=== PATIENT | female | born 1935 | race Caucasian/White ===

== ENCOUNTER 2018-06-21 09:51 | Inpatient (IN) | payer MEDICARE, OTHER ==
[~2018-06-21] VITALS: Ht 162.6 cm; Wt 45.0 kg
[2018-06-21] VITALS (31 sets, daily range): BP systolic 53–132; BP diastolic 30–96; PULSE 61–101; RESP 12–25; Ht 162.6 cm; Wt 45.0 kg
[~2018-06-21 09:51] MED LIST: ETOMIDATE 20 MG INJ ONE; ROCURONIUM 50 MG INJ ONE
[2018-06-21] MEDS ORDERED: PROPOFOL 100 ML ONE (10:04)
[2018-06-21] MEDS ORDERED: SOD CHLORIDE 0.9% IV ONE (10:30)
[2018-06-21] MEDS: PROPOFOL 100 ML IV STA ×3 (10:30→14:59)
[2018-06-21] MEDS ORDERED: NORepinephrine 8MG/250 ML (PMX 250 ML IV STA (11:15)
[2018-06-21] MEDS ORDERED: CEFEPIME 2GM/50 ML (PMX) 50 ML IVPB STA (11:16)
[2018-06-21] MEDS ORDERED: NORepinephrine 8MG/250 ML (PMX 250 ML ONE (11:22)
[2018-06-21] MEDS ORDERED: POTASSIUM CHLORIDE 100 ML IVPB ONE (11:30)
[2018-06-21] MEDS ORDERED: VANCOMYCIN 1 GM (PMX) 250 ML IVPB ONE (11:30)
--- NOTE | 2018-06-21 11:45 | ERD ---
ER Documentation Chief Complaint Chief Complaint BIB RA FOR RESPIRATORY DISRESS. SON WITH PT AT BEDSIDE HPI This is an 83-year-old female who presents for evaluation of respiratory distress, she is brought in by her son. Per the son, the patient has a history of hypothyroidism, and had been overall in her general normal state of health up until about a week ago, since then she has experienced rapid decline. Today, she was generally unresponsive, and was brought in by EMS apneic. Upon my evaluation, I discussed the plan of care with the patient's son, and he did wish to have her intubated for airway protection, however felt that her wishes would be to not perform CPR should she have a cardiac arrest. ROS All systems reviewed and are negative except as per history of present illness. Medications Home Meds Reported Medications Levothyroxine Sodium* (Levothyroxine Sodium*) 75 Mcg Tablet, 75 MCG PO BEFORE BREAKFAST, #30 TAB 06/21/18 Allergies Allergies: Coded Allergies: No Known Allergy (Unverified , 06/21/18) Physical Exam Vitals Vital Signs Date Temp Pulse Resp B/P (MAP) Pulse Ox O2 O2 Flow FiO2 Time Delivery Rate 06/21/18 78 80/57 (65) 100 Mechanical 14:20 Ventilator 06/21/18 81 21 100 50 13:52 06/21/18 77 118/81 100 Mechanical 13:45 (93) Ventilator 06/21/18 88 20 117/88 100 Mechanical 12:30 (98) Ventilator 06/21/18 85 18 91/73 (79) 100 Mechanical 12:15 Ventilator 06/21/18 81 18 97/74 (82) 100 Mechanical 12:00 Ventilator 06/21/18 81 18 100 50 11:53 06/21/18 88 20 129/63 100 Mechanical 11:45 (85) Ventilator 06/21/18 120 20 123/72 100 Mechanical 11:35 (89) Ventilator 06/21/18 108 20 98/47 (64) 100 Mechanical 11:30 Ventilator 06/21/18 114 18 58/35 (43) 100 Mechanical 11:25 Ventilator 06/21/18 80 18 57/37 (44) 100 Mechanical 11:15 Ventilator 06/21/18 89 20 57/37 (44) 100 Mechanical 11:00 Ventilator 06/21/18 Rebreather 15 10:50 06/21/18 71 18 95/59 (71) 100 Mechanical 10:45 Ventilator 06/21/18 74 18 130/57 100 Mechanical 10:30 (81) Ventilator 06/21/18 98.1 84 18 105/63 100 Mechanical 10:15 (77) Ventilator 06/21/18 92 18 99 100 10:14 06/21/18 89 26 134/82 100 Mechanical 10:00 (99) Ventilator 06/21/18 90 8 126/83 09:57 (97) Physical Exam Const: Obtunded Head: Atraumatic Eyes: Normal Conjunctiva ENT: Normal External Ears, Nose and Mouth. Neck: Full range of motion. No meningismus. Resp: Shallow breath sounds Cardio: Regular rate and rhythm, no murmurs Abd: Soft, non tender, non distended. Normal bowel sounds Skin: No petechiae or rashes Back: No midline or flank tenderness Ext: No cyanosis, or edema Neur: Opens eyes to painful stimulus, is otherwise unresponsive Result Diagram: 06/21/18 1020 06/21/18 1020 Results 24 hrs Laboratory Tests Test 06/21/18 10:20 06/21/18 10:21 06/21/18 10:43 06/21/18 10:45 White Blood 8.6 10^3/ul Count Red Blood Count 3.77 10^6/ul Hemoglobin 11.3 g/dl Hematocrit 34.9 % Mean Corpuscular 92.6 fl Volume Mean Corpuscular 30.0 pg Hemoglobin Mean Corpuscular 32.4 g/dl Hemoglobin Zena nt Red Cell 15.2 % Distribution Width Platelet Count 199 10^3/UL Mean Platelet 9.6 fl Volume Immature 0.900 % Granulocytes % Neutrophils % 86.1 % Lymphocytes % 8.9 % Monocytes % 4.1 % Eosinophils % 0.0 % Basophils % 0.0 % Nucleated Red 0.0 /100WBC Blood Cells % Immature 0.080 10^3/ul Granulocytes # Neutrophils # 7.4 10^3/ul Lymphocytes # 0.8 10^3/ul Monocytes # 0.4 10^3/ul Eosinophils # 0.0 10^3/ul Basophils # 0.0 10^3/ul Nucleated Red 0.0 10^3/ul Blood Cells # Prothrombin Time 17.1 Sec Prothrombin Time 1.3 Ratio INR 1.38 International Normalized Ratio Sodium Level 147 mmol/L Potassium Level 2.7 mmol/L Chloride Level 121 mmol/L Carbon Dioxide 16 mmol/L Level Anion Gap 10 Blood Urea 43 mg/dl Nitrogen Creatinine 1.46 mg/dl Est Glomerular mL/min Filtrat Rate mL/min Glucose Level 126 mg/dl Calcium Level 6.6 mg/dl Total Bilirubin 0.2 mg/dl Direct Bilirubin 0.00 mg/dl Indirect 0.2 mg/dl Bilirubin Aspartate Amino 27 IU/L Transf (AST/SGOT ) Alanine 21 IU/L Aminotransferase (ALT/SGPT) Alkaline 53 IU/L Phosphatase Troponin I 0.546 ng/ml Total Protein 4.5 g/dl Albumin 2.0 g/dl Globulin 2.50 g/dl Albumin/Globulin 0.80 Ratio Free Thyroxine 4.02 ug/ml Index Thyroxine (T4) 7.1 ug/dl Triiodothyronine 56.6 % (T3) Uptake Salicylates < 1.0 mg/dl Level Acetaminophen < 10.0 ug/ml Level Ethyl Alcohol < 10.0 mg/dl Level Ammonia < 9 umol/l Urine Color SHIRA Urine Clarity CLEAR Urine pH 5.0 Urine Specific 1.019 [place] Urine Ketones NEGATIVE mg/dL Urine Nitrite NEGATIVE mg/dL Urine Bilirubin NEGATIVE mg/dL Urine 2+ mg/dL Urobilinogen Urine Leukocyte NEGATIVE Mickey/ul Esterase Urine 11 /HPF Microscopic RBC Urine 2 /HPF Microscopic WBC Urine Squamous FEW /HPF Epithelial Cells Urine Bacteria FEW /HPF Urine Hemoglobin 2+ mg/dL Urine Glucose NEGATIVE mg/dL Urine Total 1+ mg/dl Protein Urine Opiates Negative Screen Urine Negative Barbiturates Urine Negative Amphetamines Screen Urine Negative Benzodiazepines Screen Urine Cocaine Negative Screen Urine Negative Cannabinoids Blood Gas Blood arterial Specimen Source Arterial Blood 06/21/2018 11:15: Date Drawn 46 AM Arterial Blood 7.453 pH (Temp corrected) Arterial Blood 19.8 mmhg pCO2 (Temp correct) Arterial Blood 489.9 mmHG pO2 (Temp corrected) Arterial Blood 13.5 mmol/L HCO3 Arterial Blood -8.0 mmol/L Base Excess Arterial Blood 99.6 mmHG Oxygen Saturatio n Russel Test ACCEPTAB Arterial Blood Left Radial Gas Puncture Site Arterial 0.1 % Blood Carboxyhem oglobin Arterial Blood 0.4 % Methemoglobin Blood Gas A-a O2 203.3 mmHg Differential Oxyhemoglobin 99.1 % Percent Blood Gas 37.0 C Temperature Blood Gas 18.0 Respiration Rate Blood Gas Actual 18 Respiration Rate Blood Gas VENT - AC Modality FiO2 100.0 % Blood Gas Tidal 400.0 mL Volume Blood Gas TM Notified Whom Blood Gas 06/21/2018 11:23: Notified Time 35 AM Test 06/21/18 11:13 06/21/18 14:36 POC Venous 4.1 mmol/L 2.5 mmol/L Lactate Current Medications Medications Dose Sig/Baljit Start Time Status Last (Trade) Ordered Route PRN Stop Time Admin Dose Reason Admin Sodium 1,350 ml @ BOLUS X1 06/21/18 DC 06/21/18 Chloride 675 mls/hr ONCE IV 10:30 06/21/18 10:46 12:29 Potassium 100 ml @ ONCE ONCE 06/21/18 DC 06/21/18 Chloride 50 mls/hr IVPB 11:30 06/21/18 12:56 13:29 Calcium 110 ml @ ONCE IVPB 06/21/18 DC 06/21/18 Gluconate 1 110 mls/hr 12:30 06/21/18 12:56 gm/Dextrose 13:29 250 ml @ ONCE STAT 06/21/18 06/21/18 Norepinephrin 7.5 mls/hr IV 11:15 06/22/18 11:25 e 20:34 Cefepime HCl 50 ml @ ONCE STAT 06/21/18 DC 06/21/18 100 mls/hr IVPB 11:16 06/21/18 12:50 11:45 Vancomycin 250 ml @ ONCE ONCE 06/21/18 DC 06/21/18 HCl 125 mls/hr IVPB 11:30 06/21/18 14:56 13:29 250 ml @ ud STK-MED 06/21/18 DC Norepinephrin ONCE .ROUTE 11:22 06/21/18 e 11:23 Propofol 100 ml @ ONCE STAT 06/21/18 06/21/18 1.35 mls/hr IV 14:31 06/24/18 10:30 16:35 75 mcg BEFORE 06/22/18 Levothyroxine BREAKFAST 07:00 Sodium PO (Synthroid) Enoxaparin 45 mg Q12 SC 06/21/18 DC Sodium 15:00 06/21/18 (Lovenox) 15:06 Sodium 1,000 ml @ [id number] IV 06/21/18 Chloride 80 mls/hr 15:00 40 mg DAILY@06 06/22/18 Pantoprazole IV 06:00 (Protonix Iv) Docusate 100 mg BID PO 06/21/18 Sodium 21:00 (Colace) 650 mg Q6H PRN 06/21/18 Acetaminophen NGT MILD 15:00 (Tylenol PAIN(1-3)OR Liquid) ELEVATED TEMP Enoxaparin 45 mg DAILY SC 06/21/18 Sodium 15:30 (Lovenox) Procedures/MDM Is an 83-year-old female who presents with respiratory distress, and altered mental state. As noted above, after discussion with the patient's son, she was intubated for airway protection, subsequently she was noted to be hypotensive, and central line was placed, she was given 30 cc/kg bolus of fluids, and she was started on IV pressors. She had no fever, but given her 100% shock, she was covered with broad-spectrum antibiotics for occult infection, she had a positive troponin as well, so other consideration that she may have had an ID, that could possibly of an silent last week. At this time I do not feel the patient has sepsis, as she has no source. Patient will be admitted to the ICU for treatment of shock. Critical Care Time: 35 minutes Treatments/Evaluations: Close monitoring and treatment of unstable vital signs, cardiorespiratory, and neurologic status, while maintaining tight balance of fluid, respiratory, and cardiac interventions. This time includes discussing the case with the patient and the patient's family. This time does not include all procedures stated elsewhere in this record. This time also includes reviewing old records, labs and radiological studies. This time includes examining and re- examining the patient. Additionally, this time also includes arranging care with admitting and consulting physicians. Endotracheal Intubation by me: Pre assessment performed. Pre-oxygenation performed with 100% oxygen RSI: Performed w/o complication or hypoxic events. Medications as ordered. Blade: MAC 3 ET Tube: 10.5 cm Depth: 21 cm at the lip Intubation confirmed by colorimetric CO2, equal breath sounds, quiet over the stomach. Chest X-ray 1V Interpreted by me: 2 cm above the waqar ET tube. Normal soft tissue, No pneumothorax. EKG: Rate/Rhythm: Sinus tachycardia QRS, ST, T-waves: No changes consistent w/ acute ischemia Impression: No evidence of ischemia or arrhythmia Departure Diagnosis: Primary Impression: Respiratory distress Additional Impressions: NSTEMI (non-ST elevated myocardial infarction) Shock Altered mental state Altered mental status type: unspecified Qualified Codes: R41.82 - Altered mental status, unspecified Condition: Critical TAI DUNCAN MD Jun 21, 2018 11:45
[2018-06-21] MEDS ORDERED: LEVO75TA5 PO (12:07)
--- NOTE | 2018-06-21 12:27 | HP ---
Date/Time of Note Date/Time of Note DATE: 06/21/18 TIME: 11:55 Assessment/Plan VTE Prophylaxis Pharmacological prophylaxis: LMWH Lines/Catheters IV Catheter Type (from Nrs): Saline Lock Assessment/Plan Assessment/Plan 83-year-old female who was brought in by family for respiratory distress and shortness of breath, has meghan declining for a while #Acute encephalopathy -may be 2/2 sepsis vs other organic cause -CT brain shows no acute pathology -may need MRI if mental status doesn't improve #Acute resp failure - likely 2/2 encephalopathy / r/o aspiration / intubated on vent support / pulm consult #Sepsis with lactic acidosis and septic shock, less likely cardiogenic -continue pressor support, wean as tolerated -?source, UA and CXR not overtly impressive -begin empiric abx, trend lactic acid levels -influenza screen #NSTEMI : likely type 2, demand ischemia -aspirin, anticoag, echo, cardiology consult -likely not a candidate for any aggressive intervention #Hx of hypothyroidism -check TSH to assess control #JUAN DAVID r/o underlying CKD -likely component of dehydration -hydration, renal USS, nephro consult? #Metabolic acidosis 2/2 JUAN DAVID -fluids, trend #Hypernatremia 2/2 dehydration -trend #Hypocalcemia -replete #DNR but pressors and intubation OK Dispo: critically ill patient requiring close monitoring and micromanagement Prognosis is Guarded alf quality of life poor, consider palliative care consult spoke with son extensively, questions answered Result Diagram: 06/21/18 1020 06/21/18 1020 Results 24hrs Laboratory Tests Test 06/21/18 10:20 06/21/18 10:21 06/21/18 10:43 06/21/18 10:45 White Blood Count 8.6 Red Blood Count 3.77 L Hemoglobin 11.3 L Hematocrit 34.9 L Mean Corpuscular 92.6 Volume Mean Corpuscular 30.0 Hemoglobin Mean Corpuscular 32.4 Hemoglobin Concent Red Cell 15.2 H Distribution Width Platelet Count 199 Mean Platelet 9.6 Volume Immature 0.900 H Granulocytes % Neutrophils % 86.1 H Lymphocytes % 8.9 L Monocytes % 4.1 Eosinophils % 0.0 Basophils % 0.0 Nucleated Red 0.0 Blood Cells % Immature 0.080 H Granulocytes # Neutrophils # 7.4 Lymphocytes # 0.8 Monocytes # 0.4 Eosinophils # 0.0 Basophils # 0.0 Nucleated Red 0.0 Blood Cells # Prothrombin Time 17.1 H Prothrombin Time 1.3 Ratio INR International 1.38 Normalized Ratio Sodium Level 147 H Potassium Level 2.7 *L Chloride Level 121 H Carbon Dioxide 16 L Level Anion Gap 10 Blood Urea 43 H Nitrogen Creatinine 1.46 H Est Glomerular Filtrat Rate mL/min Glucose Level 126 Calcium Level 6.6 L Total Bilirubin 0.2 Direct Bilirubin 0.00 Indirect Bilirubin 0.2 Aspartate Amino 27 Transf (AST/SGOT) Alanine 21 Aminotransferase ( ALT/SGPT) Alkaline 53 Phosphatase Troponin I 0.546 *H Total Protein 4.5 L Albumin 2.0 L Globulin 2.50 Albumin/Globulin 0.80 Ratio Free Thyroxine Pending Index Thyroxine (T4) 7.1 Triiodothyronine Pending (T3) Uptake Salicylates Level < 1.0 L Acetaminophen < 10.0 L Level Ethyl Alcohol < 10.0 H Level Ammonia < 9 L Urine Color SHIRA Urine Clarity CLEAR Urine pH 5.0 Urine Specific 1.019 [place] Urine Ketones NEGATIVE Urine Nitrite NEGATIVE Urine Bilirubin NEGATIVE Urine Urobilinogen 2+ H Urine Leukocyte NEGATIVE Esterase Urine Microscopic 11 H RBC Urine Microscopic 2 WBC Urine Squamous FEW Epithelial Cells Urine Bacteria FEW A Urine Hemoglobin 2+ H Urine Glucose NEGATIVE Urine Total 1+ H Protein Urine Opiates Negative Screen Urine Barbiturates Negative Urine Amphetamines Negative Screen Urine Negative Benzodiazepines Screen Urine Cocaine Negative Screen Urine Cannabinoids Negative Blood Gas Specimen Blood arterial Source Arterial Blood 06/21/2018 11:15:46 Date Drawn AM Arterial Blood pH 7.453 H (Temp corrected) Arterial Blood 19.8 L pCO2 (Temp correct) Arterial Blood pO2 489.9 H (Temp corrected) Arterial Blood 13.5 L HCO3 Arterial Blood -8.0 L Base Excess Arterial Blood 99.6 Oxygen Saturation Russel Test ACCEPTAB Arterial Blood Gas Left Radial Puncture Site Arterial 0.1 Blood Carboxyhemog lobin Arterial Blood 0.4 Methemoglobin Blood Gas A-a O2 203.3 H Differential Oxyhemoglobin 99.1 H Percent Blood Gas 37.0 Temperature Blood Gas 18.0 Respiration Rate Blood Gas Actual 18 Respiration Rate Blood Gas Modality VENT - AC FiO2 100.0 Blood Gas Tidal 400.0 Volume Blood Gas Notified TM Whom Blood Gas Notified 06/21/2018 11:23:35 Time AM Test 06/21/18 11:13 POC Venous Lactate 4.1 *H HPI/ROS Admit Date/Time Admit Date/Time Hx of Present Illness 83-year-old female who was brought in by family for respiratory distress and shortness of breath. Patient resides at home with her son and her health has been slowly declining over the last month. She was previously able to ambulate for short distances with support, but in the last month has been more bedbound. BUt as of the last 2 days she has been having these spacing out episodes where her eyes are open but she's not following commands and her appetitte has been slowly waning. She usually recovers from these episodes but as of today she did not improve and as such her son brought her to the ER where she was found to be altered and hypoxic and subsequently intubated. Her blood pressure also dropped and now she is on pressor support. She is beeing admitted to [facility] for further mgt. ROS 12 point review if systems was done and pertinent findings are as noted. Obtained from son. PMH/Family/Social Past Medical History Hypothyrodism Medications Current Medications Sodium Chloride 1,350 ml @ 675 mls/hr BOLUS X1 ONCE IV Last administered on 06/21/18at 10:46; Admin Dose 675 MLS/HR; Start 06/21/18 at 10:30; Stop 06/21/18 at 12:29 Potassium Chloride 100 ml @ 50 mls/hr ONCE ONCE IVPB ; Start 06/21/18 at 11:30; Stop 06/21/18 at 13:29 Calcium Gluconate 1 gm/Dextrose 110 ml @ 110 mls/hr ONCE IVPB ; Start 06/21/18 at 12:30; Stop 06/21/18 at 13:29 Norepinephrine 250 ml @ 7.5 mls/hr ONCE STAT IV ; Start 06/21/18 at 11:15; Stop 06/22/18 at 20:34 Vancomycin HCl 250 ml @ 125 mls/hr ONCE ONCE IVPB ; Start 06/21/18 at 11:30; Stop 06/21/18 at 13:29 Coded Allergies: No Known Allergy (Unverified , 06/21/18) Exam/Review of Systems Vital Signs Vitals Vital Signs Date Temp Pulse Resp B/P (MAP) Pulse Ox O2 O2 Flow FiO2 Time Delivery Rate 06/21/18 Rebreather 15 10:50 06/21/18 92 18 99 100 10:14 06/21/18 126/83 09:57 (97) Exam Exam GENERAL: Intubated and comfortably sedated HEENT: SHANNON, Intubated, frail, elderly LUNGS: diffusely diminished and coarse BS HEART: S1, S2. No murmur, gallops or rubs. ABDOMEN: Soft, non distended, Normoactive bowel sounds. GENITOURINARY: Normal female external genitalia, Allan to bedside drainage EXTREMITIES: Mild 1+ nonpitting edema bilaterally, also some hand edema bilaterally NEUROLOGIC: The patient is currently sedated. Additional Comments PROCEDURE: Chest x-ray CLINICAL INDICATION: Altered mental status. Intubated. TECHNIQUE: VIEWS: 1 COMPARISON: None. FINDINGS: SUPPORT DEVICES: An endotracheal tube terminates 2.5 cm above the waqar. CARDIAC AND MEDIASTINAL SILHOUETTES: The cardiomediastinal silhouette is not enlarged . There are thoracic aortic atherosclerotic calcifications. LUNGS AND PLEURAL SPACE: The lungs are hyperinflated . There is scarring of the bilateral upper and lower lobes. No consolidation, or pulmonary edema, or pleural effusion. PNEUMOTHORAX: None. OSSEOUS STRUCTURES: There is an indeterminate aged severe compression fracture of the L1 vertebral body. A thoracolumbar rotary levoscoliosis is seen. IMPRESSION: 1. Endotracheal tube tip terminates 2.5 cm above the waqar. 2. Hyperinflated lungs with multifocal scarring. 3. Indeterminate age severe compression fracture of the L1 vertebral body for which further evaluation with dedicated examination of the lumbar spine is recommend. 4. Aortic atherosclerosis. RPTAT: HRSR Physician Renetta Date Time Electronically viewed and signed by Clementine Mg Physician on 06/21/2018 10:47 RR/ CC: TAI DUNCAN MD [id number] RONALD LAWRENCE Jun 21, 2018 12:27
[2018-06-21] MEDS ORDERED: CALCIUM GLUCONATE 10% 1 GM in DEXTROSE 5% 100 ML IVPB SCH (12:30)
--- NOTE | 2018-06-21 14:57 | CONS ---
Date/Time of Note Date/Time of Note DATE: 06/21/18 TIME: 14:56 Assessment/Plan Assessment/Plan Assessment/Plan 1. Acute kidney injury due to ATN from sepsis 2. Hypokalemia 3. Hypernatremia 4. acute hypoxemic respiratory failure 5.H/o Hypothyroidism 6. sepsis 7. acute NSTEMI 8. acute metabolic encephalopathy Plan: admission to ICU Continue IV abx, renally dose all abx an dmontior electrlytes agreesive K replacement ordered for today DNR, but intubation ok Pulmonary and and Cardiology has been following Thanks for consultation, I will continue to follow up Result Diagram: 06/21/18 1020 06/21/18 1020 Results 24hrs Laboratory Tests Test 06/21/18 10:20 06/21/18 10:21 06/21/18 10:43 06/21/18 10:45 White Blood Count 8.6 Red Blood Count 3.77 L Hemoglobin 11.3 L Hematocrit 34.9 L Mean Corpuscular 92.6 Volume Mean Corpuscular 30.0 Hemoglobin Mean Corpuscular 32.4 Hemoglobin Concent Red Cell 15.2 H Distribution Width Platelet Count 199 Mean Platelet 9.6 Volume Immature 0.900 H Granulocytes % Neutrophils % 86.1 H Lymphocytes % 8.9 L Monocytes % 4.1 Eosinophils % 0.0 Basophils % 0.0 Nucleated Red 0.0 Blood Cells % Immature 0.080 H Granulocytes # Neutrophils # 7.4 Lymphocytes # 0.8 Monocytes # 0.4 Eosinophils # 0.0 Basophils # 0.0 Nucleated Red 0.0 Blood Cells # Prothrombin Time 17.1 H Prothrombin Time 1.3 Ratio INR International 1.38 Normalized Ratio Sodium Level 147 H Potassium Level 2.7 *L Chloride Level 121 H Carbon Dioxide 16 L Level Anion Gap 10 Blood Urea 43 H Nitrogen Creatinine 1.46 H Est Glomerular Filtrat Rate mL/min Glucose Level 126 Calcium Level 6.6 L Total Bilirubin 0.2 Direct Bilirubin 0.00 Indirect Bilirubin 0.2 Aspartate Amino 27 Transf (AST/SGOT) Alanine 21 Aminotransferase ( ALT/SGPT) Alkaline 53 Phosphatase Troponin I 0.546 *H Total Protein 4.5 L Albumin 2.0 L Globulin 2.50 Albumin/Globulin 0.80 Ratio Free Thyroxine 4.02 H Index Thyroxine (T4) 7.1 Triiodothyronine 56.6 H (T3) Uptake Salicylates Level < 1.0 L Acetaminophen < 10.0 L Level Ethyl Alcohol < 10.0 H Level Ammonia < 9 L Urine Color SHIRA Urine Clarity CLEAR Urine pH 5.0 Urine Specific 1.019 [place] Urine Ketones NEGATIVE Urine Nitrite NEGATIVE Urine Bilirubin NEGATIVE Urine Urobilinogen 2+ H Urine Leukocyte NEGATIVE Esterase Urine Microscopic 11 H RBC Urine Microscopic 2 WBC Urine Squamous FEW Epithelial Cells Urine Bacteria FEW A Urine Hemoglobin 2+ H Urine Glucose NEGATIVE Urine Total 1+ H Protein Urine Opiates Negative Screen Urine Barbiturates Negative Urine Amphetamines Negative Screen Urine Negative Benzodiazepines Screen Urine Cocaine Negative Screen Urine Cannabinoids Negative Blood Gas Specimen Blood arterial Source Arterial Blood 06/21/2018 11:15:46 Date Drawn AM Arterial Blood pH 7.453 H (Temp corrected) Arterial Blood 19.8 L pCO2 (Temp correct) Arterial Blood pO2 489.9 H (Temp corrected) Arterial Blood 13.5 L HCO3 Arterial Blood -8.0 L Base Excess Arterial Blood 99.6 Oxygen Saturation Russel Test ACCEPTAB Arterial Blood Gas Left Radial Puncture Site Arterial 0.1 Blood Carboxyhemog lobin Arterial Blood 0.4 Methemoglobin Blood Gas A-a O2 203.3 H Differential Oxyhemoglobin 99.1 H Percent Blood Gas 37.0 Temperature Blood Gas 18.0 Respiration Rate Blood Gas Actual 18 Respiration Rate Blood Gas Modality VENT - AC FiO2 100.0 Blood Gas Tidal 400.0 Volume Blood Gas Notified TM Whom Blood Gas Notified 06/21/2018 11:23:35 Time AM Test 06/21/18 11:13 06/21/18 14:36 POC Venous Lactate 4.1 *H 2.5 *H Consultation Date/Type/Reason Admit Date/Time 06/21/18 Date of Consultation: Jun 21, 2018 Type of Consult NEPHROLOGY Reason for Consultation acue kidney injury, Hypokalemia Requesting Provider: RONALD LAWRENCE Hx of Present Illness 83-year-old female who was brought in by family for respiratory distress and shortness of breath. she gets admitted for respiratory failure, intubatd, had a elevated troponin and evaluated by Cardiology, On Admission BUN/Cr 43/1.46, K 2.7- Renal has been consulted for acute kidney injury, Hypookalemia Subjective hx not possible: pt non-verbal, pt critical status Past Medical History Medical History: high cholesterol, hypertension, hypothyroid Medications Current Medications Norepinephrine 250 ml @ 7.5 mls/hr ONCE STAT IV Last administered on 06/21/18at 11:25; Admin Dose 7.5 MLS/HR; Start 06/21/18 at 11:15; Stop 06/22/18 at 20:34 Propofol 100 ml @ 1.35 mls/hr ONCE STAT IV ; Start 06/21/18 at 14:31; Stop 06/24/18 at 16:35 Levothyroxine Sodium (Synthroid) 75 mcg BEFORE BREAKFAST PO ; Start 06/22/18 at 07:00 Enoxaparin Sodium (Lovenox) 45 mg Q12 SC ; Start 06/21/18 at 15:00; Status UNV Allergies: Coded Allergies: No Known Allergy (Unverified , 06/21/18) Past Surgical History Past Surgical Hx: other (not available ) Family History Significant Family History: other (not available ) Social History Alcohol Use: none Drug Use: none Exam/Review of Systems Vital Signs Vitals Vital Signs Date Temp Pulse Resp B/P (MAP) Pulse Ox O2 O2 Flow FiO2 Time Delivery Rate 06/21/18 78 80/57 (65) 100 Mechanical 14:20 Ventilator 06/21/18 21 50 13:52 06/21/18 15 10:50 06/21/18 98.1 10:15 Exam Constitutional: non-verbal, other (due to intubation ) Head: normocephalic Eyes: other (ET tube in place, NG tube in place ) ENMT: nl external ears & nose Neck: supple, non-tender Respiratory: congested cough, crackles/rales, diminished breath sounds Cardiovascular: regular rate and rhythm, nl pulses Gastrointestinal: soft, non-tender Musculoskeletal: muscle weakness, swelling Neurological: other (Intubated, sedated ) Skin: nl turgor Lymph: nl lymph nodes Medications Medications Current Medications Norepinephrine 250 ml @ 7.5 mls/hr ONCE STAT IV Last administered on 06/21/18at 11:25; Admin Dose 7.5 MLS/HR; Start 06/21/18 at 11:15; Stop 06/22/18 at 20:34 Propofol 100 ml @ 1.35 mls/hr ONCE STAT IV ; Start 06/21/18 at 14:31; Stop 06/24/18 at 16:35 Levothyroxine Sodium (Synthroid) 75 mcg BEFORE BREAKFAST PO ; Start 06/22/18 at 07:00 Enoxaparin Sodium (Lovenox) 45 mg Q12 SC ; Start 06/21/18 at 15:00; Status UNV RIA SHULTZ MD Jun 21, 2018 14:57
[2018-06-21] MEDS ORDERED: ACETAMINOPHEN 650MG/20.3ML CUP NGT PRN (15:00)
[2018-06-21] MEDS ORDERED: ENOXAPARIN 100 MG/ML SYG SC SCH (15:00)
[2018-06-21] MEDS: SOD CHLORIDE 0.9% 1,000 ML IV SCH (16:55)
[2018-06-21] MEDS: ENOXAPARIN 60 MG/0.6 ML SYG SC SCH (16:56)
[2018-06-21] MEDS: ASPIRIN 81 MG TAB GTB SCH (18:30)
--- NOTE | 2018-06-21 18:31 | CONS ---
Date/Time of Note Date/Time of Note DATE: 06/21/18 TIME: 18:27 Assessment/Plan Assessment/Plan Hospital Course 1) Troponinelevation likely of nonspecific nature after significant hypotension 2) Sepsis 3) pressor dependent hypotension 4) Hypokalemia 5) VDRF Assessment/Plan 1) Keep K > 4, Mag > 2 2) asa 3) STATIN 4) echo 5) check BMP and mag dw family Result Diagram: 06/21/18 1020 06/21/18 1020 Results 24hrs Laboratory Tests Test 06/21/18 10:20 06/21/18 10:21 06/21/18 10:43 06/21/18 10:45 White Blood Count 8.6 Red Blood Count 3.77 L Hemoglobin 11.3 L Hematocrit 34.9 L Mean Corpuscular 92.6 Volume Mean Corpuscular 30.0 Hemoglobin Mean Corpuscular 32.4 Hemoglobin Concent Red Cell 15.2 H Distribution Width Platelet Count 199 Mean Platelet 9.6 Volume Immature 0.900 H Granulocytes % Neutrophils % 86.1 H Lymphocytes % 8.9 L Monocytes % 4.1 Eosinophils % 0.0 Basophils % 0.0 Nucleated Red 0.0 Blood Cells % Immature 0.080 H Granulocytes # Neutrophils # 7.4 Lymphocytes # 0.8 Monocytes # 0.4 Eosinophils # 0.0 Basophils # 0.0 Nucleated Red 0.0 Blood Cells # Prothrombin Time 17.1 H Prothrombin Time 1.3 Ratio INR International 1.38 Normalized Ratio Sodium Level 147 H Potassium Level 2.7 *L Chloride Level 121 H Carbon Dioxide 16 L Level Anion Gap 10 Blood Urea 43 H Nitrogen Creatinine 1.46 H Est Glomerular Filtrat Rate mL/min Glucose Level 126 Calcium Level 6.6 L Total Bilirubin 0.2 Direct Bilirubin 0.00 Indirect Bilirubin 0.2 Aspartate Amino 27 Transf (AST/SGOT) Alanine 21 Aminotransferase ( ALT/SGPT) Alkaline 53 Phosphatase Troponin I 0.546 *H Total Protein 4.5 L Albumin 2.0 L Globulin 2.50 Albumin/Globulin 0.80 Ratio Free Thyroxine 4.02 H Index Thyroxine (T4) 7.1 Triiodothyronine 56.6 H (T3) Uptake Salicylates Level < 1.0 L Acetaminophen < 10.0 L Level Ethyl Alcohol < 10.0 H Level Ammonia < 9 L Urine Color SHIRA Urine Clarity CLEAR Urine pH 5.0 Urine Specific 1.019 [place] Urine Ketones NEGATIVE Urine Nitrite NEGATIVE Urine Bilirubin NEGATIVE Urine Urobilinogen 2+ H Urine Leukocyte NEGATIVE Esterase Urine Microscopic 11 H RBC Urine Microscopic 2 WBC Urine Squamous FEW Epithelial Cells Urine Bacteria FEW A Urine Hemoglobin 2+ H Urine Glucose NEGATIVE Urine Total 1+ H Protein Urine Opiates Negative Screen Urine Barbiturates Negative Urine Amphetamines Negative Screen Urine Negative Benzodiazepines Screen Urine Cocaine Negative Screen Urine Cannabinoids Negative Blood Gas Specimen Blood arterial Source Arterial Blood 06/21/2018 11:15:46 Date Drawn AM Arterial Blood pH 7.453 H (Temp corrected) Arterial Blood 19.8 L pCO2 (Temp correct) Arterial Blood pO2 489.9 H (Temp corrected) Arterial Blood 13.5 L HCO3 Arterial Blood -8.0 L Base Excess Arterial Blood 99.6 Oxygen Saturation Russel Test ACCEPTAB Arterial Blood Gas Left Radial Puncture Site Arterial 0.1 Blood Carboxyhemog lobin Arterial Blood 0.4 Methemoglobin Blood Gas A-a O2 203.3 H Differential Oxyhemoglobin 99.1 H Percent Blood Gas 37.0 Temperature Blood Gas 18.0 Respiration Rate Blood Gas Actual 18 Respiration Rate Blood Gas Modality VENT - AC FiO2 100.0 Blood Gas Tidal 400.0 Volume Blood Gas Notified TM Whom Blood Gas Notified 06/21/2018 11:23:35 Time AM Test 06/21/18 11:13 06/21/18 14:36 POC Venous Lactate 4.1 *H 2.5 *H Consultation Date/Type/Reason Admit Date/Time 06/21/18 Date of Consultation: Jun 21, 2018 Type of Consult cv Reason for Consultation troponinelevation Hx of Present Illness patient in ICU with pressor dependent hypotension suggestive of septic shock syndrome, intubated, family at bedside, intubated on vent, nonverbal Subjective hx not possible: pt non-verbal, pt critical status Past Medical History Medical History: hypertension Medications Current Medications Propofol 100 ml @ 1.35 mls/hr ONCE STAT IV Last administered on 06/21/18at 10:30; Admin Dose 0.54 MLS/HR; Start 06/21/18 at 14:31; Stop 06/24/18 at 16:35 Levothyroxine Sodium (Synthroid) 75 mcg BEFORE BREAKFAST PO ; Start 06/22/18 at 07:00 Sodium Chloride 1,000 ml @ 80 mls/hr [id number] IV Last administered on 06/21/18at 16:55; Admin Dose 80 MLS/HR; Start 06/21/18 at 15:00 Pantoprazole (Protonix Iv) 40 mg DAILY@06 IV ; Start 06/22/18 at 06:00 Docusate Sodium (Colace) 100 mg BID PO ; Start 06/21/18 at 21:00 Acetaminophen (Tylenol Liquid) 650 mg Q6H PRN NGT MILD PAIN(1-3)OR ELEVATED TEMP; Start 06/21/18 at 15:00 Enoxaparin Sodium (Lovenox) 45 mg DAILY SC Last administered on 06/21/18at 16:56; Admin Dose 45 MG; Start 06/21/18 at 15:30 Norepinephrine 16 mg/Dextrose 500 ml @ 1.88 mls/hr TITRATE IV ; Start 06/21/18 at 18:00 Allergies: Coded Allergies: No Known Allergy (Unverified , 06/21/18) Family History Significant Family History: hypertension Exam/Review of Systems Vital Signs Vitals Vital Signs Date Temp Pulse Resp B/P (MAP) Pulse Ox O2 O2 Flow FiO2 Time Delivery Rate 06/21/18 90 16:15 06/21/18 100 50 15:47 06/21/18 97.5 153/106 Mechanical 15:45 (122) Ventilator 06/21/18 15 10:50 Exam Constitutional: non-verbal Head: normocephalic, atraumatic ENMT: intubated Neck: jvd Respiratory: clear to auscultation Cardiovascular: regular rate and rhythm Gastrointestinal: soft Musculoskeletal: muscle weakness, range of motion Extremities: normal pulses Medications Medications Current Medications Propofol 100 ml @ 1.35 mls/hr ONCE STAT IV Last administered on 06/21/18at 10:30; Admin Dose 0.54 MLS/HR; Start 06/21/18 at 14:31; Stop 06/24/18 at 16:35 Levothyroxine Sodium (Synthroid) 75 mcg BEFORE BREAKFAST PO ; Start 06/22/18 at 07:00 Sodium Chloride 1,000 ml @ 80 mls/hr [id number] IV Last administered on 06/21/18at 16:55; Admin Dose 80 MLS/HR; Start 06/21/18 at 15:00 Pantoprazole (Protonix Iv) 40 mg DAILY@06 IV ; Start 06/22/18 at 06:00 Docusate Sodium (Colace) 100 mg BID PO ; Start 06/21/18 at 21:00 Acetaminophen (Tylenol Liquid) 650 mg Q6H PRN NGT MILD PAIN(1-3)OR ELEVATED TEMP; Start 06/21/18 at 15:00 Enoxaparin Sodium (Lovenox) 45 mg DAILY SC Last administered on 06/21/18at 16:56; Admin Dose 45 MG; Start 06/21/18 at 15:30 Norepinephrine 16 mg/Dextrose 500 ml @ 1.88 mls/hr TITRATE IV ; Start 06/21/18 at 18:00 Imaging Imaging EKG, nonspecific ST changes CELINA OLSEN MD Jun 21, 2018 18:31
[2018-06-21] MEDS ORDERED: POTASSIUM CHLORIDE 50 ML IVPB SCH (20:30)
[2018-06-21] MEDS ORDERED: ATORVASTATIN 10 MG TAB NGT SCH (21:00)
[2018-06-21] MEDS: DOCUSATE SODIUM 100 MG CAP PO SCH (21:00)
[2018-06-22] VITALS (66 sets, daily range): BP systolic 34–161; BP diastolic 25–104; PULSE 47–104; RESP 15–29
[2018-06-22] MEDS: SOD CHLORIDE 0.9% 1,000 ML IV SCH (05:30)
[2018-06-22] MEDS ORDERED: PANTOPRAZOLE 40 MG INJ IV SCH (06:00)
[2018-06-22] MEDS ORDERED: LEVOTHYROXINE 75 MCG TAB PO SCH (07:00)
[2018-06-22] MEDS: ENOXAPARIN 60 MG/0.6 ML SYG SC SCH (08:42)
--- NOTE | 2018-06-22 08:48 | CONS ---
Date/Time of Note Date/Time of Note DATE: 06/22/18 TIME: 08:43 Assessment/Plan Assessment/Plan Assessment/Plan Ventilator setting; AC of 18, tidal volume 400, PEEP of 0, 30% FiO2. Patient is currently on Levophed at 20 mics per minute. Chest x-ray was reviewed which is essentially unremarkable. Assessment and recommendations; 1. Patient admitted for sepsis source is unclear. Currently on appropriate antimicrobial coverage. 2. Possibly acute on chronic renal injury. 3. Dehydration with prerenal azotemia. 4. Non-ST elevation [place]. 5. History of hypothyroidism. 6. Persistent shock. Requiring high-dose Levophed. Continue current supportive care. Continue to wean off Levophed as tolerated. Obtain follow-up chest x-ray 24 hours. Monitor renal function. Continue IV hydration. Patient's family has signed a DNR form. Prognosis is guarded. 40 minutes of critical care time was spent evaluating the patient. Result Diagram: 06/22/18 0520 06/22/18 0500 Results 24hrs Laboratory Tests Test 06/21/18 10:20 06/21/18 10:21 06/21/18 10:43 06/21/18 10:45 White Blood Count 8.6 Red Blood Count 3.77 L Hemoglobin 11.3 L Hematocrit 34.9 L Mean Corpuscular 92.6 Volume Mean Corpuscular 30.0 Hemoglobin Mean Corpuscular 32.4 Hemoglobin Concent Red Cell 15.2 H Distribution Width Platelet Count 199 Mean Platelet 9.6 Volume Immature 0.900 H Granulocytes % Neutrophils % 86.1 H Lymphocytes % 8.9 L Monocytes % 4.1 Eosinophils % 0.0 Basophils % 0.0 Nucleated Red 0.0 Blood Cells % Immature 0.080 H Granulocytes # Neutrophils # 7.4 Lymphocytes # 0.8 Monocytes # 0.4 Eosinophils # 0.0 Basophils # 0.0 Nucleated Red 0.0 Blood Cells # Prothrombin Time 17.1 H Prothrombin Time 1.3 Ratio INR International 1.38 Normalized Ratio Sodium Level 147 H Potassium Level 2.7 *L Chloride Level 121 H Carbon Dioxide 16 L Level Anion Gap 10 Blood Urea 43 H Nitrogen Creatinine 1.46 H Est Glomerular Filtrat Rate mL/min Glucose Level 126 Calcium Level 6.6 L Total Bilirubin 0.2 Direct Bilirubin 0.00 Indirect Bilirubin 0.2 Aspartate Amino 27 Transf (AST/SGOT) Alanine 21 Aminotransferase ( ALT/SGPT) Alkaline 53 Phosphatase Troponin I 0.546 *H Total Protein 4.5 L Albumin 2.0 L Globulin 2.50 Albumin/Globulin 0.80 Ratio Free Thyroxine 4.02 H Index Thyroxine (T4) 7.1 Triiodothyronine 56.6 H (T3) Uptake Salicylates Level < 1.0 L Acetaminophen < 10.0 L Level Ethyl Alcohol < 10.0 H Level Ammonia < 9 L Urine Color SHIRA Urine Clarity CLEAR Urine pH 5.0 Urine Specific 1.019 [place] Urine Ketones NEGATIVE Urine Nitrite NEGATIVE Urine Bilirubin NEGATIVE Urine Urobilinogen 2+ H Urine Leukocyte NEGATIVE Esterase Urine Microscopic 11 H RBC Urine Microscopic 2 WBC Urine Squamous FEW Epithelial Cells Urine Bacteria FEW A Urine Hemoglobin 2+ H Urine Glucose NEGATIVE Urine Total 1+ H Protein Urine Opiates Negative Screen Urine Barbiturates Negative Urine Amphetamines Negative Screen Urine Negative Benzodiazepines Screen Urine Cocaine Negative Screen Urine Cannabinoids Negative Blood Gas Specimen Blood arterial Source Arterial Blood 06/21/2018 11:15:46 Date Drawn AM Arterial Blood pH 7.453 H (Temp corrected) Arterial Blood 19.8 L pCO2 (Temp correct) Arterial Blood pO2 489.9 H (Temp corrected) Arterial Blood 13.5 L HCO3 Arterial Blood -8.0 L Base Excess Arterial Blood 99.6 Oxygen Saturation Russel Test ACCEPTAB Arterial Blood Gas Left Radial Puncture Site Arterial 0.1 Blood Carboxyhemog lobin Arterial Blood 0.4 Methemoglobin Blood Gas A-a O2 203.3 H Differential Oxyhemoglobin 99.1 H Percent Blood Gas 37.0 Temperature Blood Gas 18.0 Respiration Rate Blood Gas Actual 18 Respiration Rate Blood Gas Modality VENT - AC FiO2 100.0 Blood Gas Tidal 400.0 Volume Blood Gas Notified TM Whom Blood Gas Notified 06/21/2018 11:23:35 Time AM Test 06/21/18 11:13 06/21/18 14:36 06/21/18 17:53 06/21/18 19:32 POC Venous Lactate 4.1 *H 2.5 *H Lactic Acid Level 8.2 *H Creatine Kinase 208 H Creatine Kinase 10.5 Index Creatinine Kinase 21.80 H MB (Mass) Troponin I 1.150 *H Sodium Level 144 Potassium Level 4.5 Chloride Level 112 H Carbon Dioxide 16 L Level Anion Gap 16 H Blood Urea 51 H Nitrogen Creatinine 1.87 H Est Glomerular Filtrat Rate mL/min Glucose Level 146 Calcium Level 9.2 Test 06/21/18 19:33 06/21/18 22:17 06/22/18 04:49 06/22/18 05:00 Magnesium Level 2.2 Lactic Acid Level 5.6 *H 2.8 *H Hemoglobin A1c 5.2 Sodium Level 143 Potassium Level 3.7 Chloride Level 115 H Carbon Dioxide 16 L Level Anion Gap 12 Blood Urea 51 H Nitrogen Creatinine 1.76 H Est Glomerular Filtrat Rate mL/min Glucose Level 187 Calcium Level 8.3 L Total Bilirubin 0.2 Direct Bilirubin 0.00 Indirect Bilirubin 0.2 Aspartate Amino 45 Transf (AST/SGOT) Alanine 18 Aminotransferase ( ALT/SGPT) Alkaline 86 # Phosphatase Total Protein 5.9 #L Albumin 2.8 L Globulin 3.10 Albumin/Globulin 0.90 Ratio Triglycerides 300 H Level Cholesterol Level 252 H LDL Cholesterol, 151 Calculated HDL Cholesterol 41 Cholesterol/HDL 6.1 Ratio Thyroid 0.221 L Stimulating Hormone (TSH) Test 06/22/18 05:20 White Blood Count 15.6 #H Red Blood Count 4.85 # Hemoglobin 14.4 # Hematocrit 45.6 # Mean Corpuscular 94.0 Volume Mean Corpuscular 29.7 Hemoglobin Mean Corpuscular 31.6 L Hemoglobin Concent Red Cell 15.3 H Distribution Width Platelet Count 210 Mean Platelet 10.1 Volume Immature 0.600 H Granulocytes % Neutrophils % 88.8 H Lymphocytes % 6.5 L Monocytes % 4.0 Eosinophils % 0.0 Basophils % 0.1 Nucleated Red 0.0 Blood Cells % Immature 0.100 H Granulocytes # Neutrophils # 13.9 H Lymphocytes # 1.0 Monocytes # 0.6 Eosinophils # 0.0 Basophils # 0.0 Nucleated Red 0.0 Blood Cells # Consultation Date/Type/Reason Admit Date/Time 06/21/18 Date of Consultation: Jun 22, 2018 Type of Consult Pulmonary/critical care History of presenting illness; Patient is a 83-year-old female who was brought into the hospital by the family with complaints of having poor overall condition. Upon further evaluation patient was found to be in respiratory failure as well as was dehydrated and had positive troponins. Patient required intubation for respiratory failure. By the time I saw the patient in ICU, patient is orally intubated and despite being off sedation is not arousable. Still requiring high-dose Levophed. History was obtained from medical records. Patient however did not appear to be in any distress. Past medical history; 1. Declining health over the last few months. 2. Possibly chronic renal insufficiency. 3. History of hypothyroidism. Medications; reviewed. Patient is currently on Levophed at 20 mics per minute. Off sedation. Other medications were reviewed as well. Allergies; none. Social history; noncontributory. Family history; patient resides with her family. Occupational history; not available. Review of system; unable to be obtained. General exam; elderly female, orally intubated, unresponsive. Currently in no distress. Past Medical History Medical History: hypertension Medications Current Medications Propofol 100 ml @ 1.35 mls/hr ONCE STAT IV Last administered on 06/21/18at 10:30; Admin Dose 0.54 MLS/HR; Start 06/21/18 at 14:31; Stop 06/24/18 at 16:35 Levothyroxine Sodium (Synthroid) 75 mcg BEFORE BREAKFAST PO ; Start 06/22/18 at 07:00 Sodium Chloride 1,000 ml @ 80 mls/hr [id number] IV Last administered on 06/22/18at 05:30; Admin Dose 80 MLS/HR; Start 06/21/18 at 15:00 Pantoprazole (Protonix Iv) 40 mg DAILY@06 IV Last administered on 06/22/18at 06:30; Admin Dose 40 MG; Start 06/22/18 at 06:00 Docusate Sodium (Colace) 100 mg BID PO ; Start 06/21/18 at 21:00 Acetaminophen (Tylenol Liquid) 650 mg Q6H PRN NGT MILD PAIN(1-3)OR ELEVATED TEMP; Start 06/21/18 at 15:00 Enoxaparin Sodium (Lovenox) 45 mg DAILY SC Last administered on 06/21/18at 16:56; Admin Dose 45 MG; Start 06/21/18 at 15:30 Norepinephrine 16 mg/Dextrose 500 ml @ 1.88 mls/hr TITRATE IV Last administered on 06/21/18at 19:37; Admin Dose 56.25 MLS/HR; Start 06/21/18 at 18:00 Aspirin (Aspirin) 81 mg DAILY GTB ; Start 06/21/18 at 18:30 Atorvastatin Calcium (Lipitor) 10 mg HS NGT ; Start 06/21/18 at 21:00 Allergies: Coded Allergies: No Known Allergy (Unverified , 06/21/18) Social History Smoking Status: Never smoker Exam/Review of Systems Vital Signs Vitals Vital Signs Date Temp Pulse Resp B/P (MAP) Pulse Ox O2 O2 Flow FiO2 Time Delivery Rate 06/22/18 69 19 101/80 100 Mechanical 08:15 (87) Ventilator 06/22/18 97.1 08:00 06/22/18 40 05:00 06/21/18 15 10:50 Intake and Output 06/21/18 06/21/18 06/22/18 1515:00 23:00 07:00 IntakeIntake Total 511.06 ml 828.27 ml OutputOutput Total 820 ml 45 ml BalanceBalance -308.94 ml 783.27 ml Exam H EENT exam; supple neck, no JVD. No lymphadenopathy. Midline trachea. No thyromegaly. Orally intubated. Patient is edentulous. Pupils are small bilaterally. Chest exam; diminished but clear breath sounds. S1-S2 audible, no murmurs. Regular rhythm. Abdomen exam; soft, no organomegaly. Bowel sounds are sluggish. Abdomen is nondistended. Extremity exam; no edema. [employer] exam; patient is unresponsive. Medications Medications Current Medications Propofol 100 ml @ 1.35 mls/hr ONCE STAT IV Last administered on 06/21/18at 10:30; Admin Dose 0.54 MLS/HR; Start 06/21/18 at 14:31; Stop 06/24/18 at 16:35 Levothyroxine Sodium (Synthroid) 75 mcg BEFORE BREAKFAST PO ; Start 06/22/18 at 07:00 Sodium Chloride 1,000 ml @ 80 mls/hr [id number] IV Last administered on 06/22/18at 05:30; Admin Dose 80 MLS/HR; Start 06/21/18 at 15:00 Pantoprazole (Protonix Iv) 40 mg DAILY@06 IV Last administered on 06/22/18at 06:30; Admin Dose 40 MG; Start 06/22/18 at 06:00 Docusate Sodium (Colace) 100 mg BID PO ; Start 06/21/18 at 21:00 Acetaminophen (Tylenol Liquid) 650 mg Q6H PRN NGT MILD PAIN(1-3)OR ELEVATED TEMP; Start 06/21/18 at 15:00 Enoxaparin Sodium (Lovenox) 45 mg DAILY SC Last administered on 06/21/18at 16:56; Admin Dose 45 MG; Start 06/21/18 at 15:30 Norepinephrine 16 mg/Dextrose 500 ml @ 1.88 mls/hr TITRATE IV Last administe red on 06/21/18at 19:37; Admin Dose 56.25 MLS/HR; Start 06/21/18 at 18:00 Aspirin (Aspirin) 81 mg DAILY GTB ; Start 06/21/18 at 18:30 Atorvastatin Calcium (Lipitor) 10 mg HS NGT ; Start 06/21/18 at 21:00 RONNY ELDRIDGE Jun 22, 2018 08:48
[2018-06-22] MEDS: DOCUSATE SODIUM 100 MG CAP PO SCH (09:00)
[2018-06-22] MEDS: ASPIRIN 81 MG TAB GTB SCH (09:00)
[2018-06-22] MEDS ORDERED: ASPIRIN 300 MG SUPP PR SCH (10:00)
--- NOTE | 2018-06-22 11:28 | CONS ---
Date/Time of Note Date/Time of Note DATE: 06/22/18 TIME: 11:23 Assessment/Plan Assessment/Plan Assessment/Plan Severe shock, likely secondary to sepsis Hypotension on IV pressor Myocardial infarction, type II Vent dependent respiratory failure Acute kidney injury -Titrate IV pressor to maintain SBP greater than 90 and/or map above 60 -Patient with mildly elevated troponin and since trending down, likely secondary to sepsis and hypotension. Patient still without NG tube secondary to issues with placement in discussion with nursing staff. Would in the interim have patient on per rectal aspirin. -No beta-maru given hypotension. -Would start statin therapy when patient has NG tube placed. -Antibiotics as per infectious disease -IV fluids as per nephrology -Vent management as per pulmonary -Greater than 32 minutes of critical care time taken in the care of this patient. Result Diagram: 06/22/18 0520 06/22/18 0500 Results 24hrs Laboratory Tests Test 06/21/18 14:36 06/21/18 17:53 06/21/18 19:32 06/21/18 19:33 POC Venous Lactate 2.5 *H Lactic Acid Level 8.2 *H Creatine Kinase 208 H Creatine Kinase 10.5 Index Creatinine Kinase 21.80 H MB (Mass) Troponin I 1.150 *H Sodium Level 144 Potassium Level 4.5 Chloride Level 112 H Carbon Dioxide 16 L Level Anion Gap 16 H Blood Urea 51 H Nitrogen Creatinine 1.87 H Est Glomerular Filtrat Rate mL/min Glucose Level 146 Calcium Level 9.2 Magnesium Level 2.2 Test 06/21/18 22:17 06/22/18 04:49 06/22/18 05:00 06/22/18 05:20 Lactic Acid Level 5.6 *H 2.8 *H Hemoglobin A1c 5.2 Sodium Level 143 Potassium Level 3.7 Chloride Level 115 H Carbon Dioxide 16 L Level Anion Gap 12 Blood Urea 51 H Nitrogen Creatinine 1.76 H Est Glomerular Filtrat Rate mL/min Glucose Level 187 Calcium Level 8.3 L Total Bilirubin 0.2 Direct Bilirubin 0.00 Indirect Bilirubin 0.2 Aspartate Amino 45 Transf (AST/SGOT) Alanine 18 Aminotransferase ( ALT/SGPT) Alkaline 86 # Phosphatase Total Protein 5.9 #L Albumin 2.8 L Globulin 3.10 Albumin/Globulin 0.90 Ratio Triglycerides 300 H Level Cholesterol Level 252 H LDL Cholesterol, 151 Calculated HDL Cholesterol 41 Cholesterol/HDL 6.1 Ratio Thyroid 0.221 L Stimulating Hormone (TSH) White Blood Count 15.6 #H Red Blood Count 4.85 # Hemoglobin 14.4 # Hematocrit 45.6 # Mean Corpuscular 94.0 Volume Mean Corpuscular 29.7 Hemoglobin Mean Corpuscular 31.6 L Hemoglobin Concent Red Cell 15.3 H Distribution Width Platelet Count 210 Mean Platelet 10.1 Volume Immature 0.600 H Granulocytes % Neutrophils % 88.8 H Lymphocytes % 6.5 L Monocytes % 4.0 Eosinophils % 0.0 Basophils % 0.1 Nucleated Red 0.0 Blood Cells % Immature 0.100 H Granulocytes # Neutrophils # 13.9 H Lymphocytes # 1.0 Monocytes # 0.6 Eosinophils # 0.0 Basophils # 0.0 Nucleated Red 0.0 Blood Cells # Test 06/22/18 09:00 Blood Gas Specimen Blood arterial Source Arterial Blood 06/22/2018 8:56:38 Date Drawn AM Arterial Blood pH 7.407 (Temp corrected) Arterial Blood 21.0 L pCO2 (Temp correct) Arterial Blood pO2 160.9 H (Temp corrected) Arterial Blood 12.9 L HCO3 Arterial Blood -9.1 L Base Excess Arterial Blood 99.0 Oxygen Saturation Russel Test ACCEPTAB Arterial Blood Gas Right Radial Puncture Site Arterial 0.2 Blood Carboxyhemog lobin Arterial Blood 0.4 Methemoglobin Blood Gas A-a O2 100.2 H Differential Oxyhemoglobin 98.4 Percent Blood Gas 37.0 Temperature Blood Gas 18.0 Respiration Rate Blood Gas Actual 18 Respiration Rate Blood Gas Modality VENT - AC FiO2 40.0 Blood Gas Tidal 400.0 Volume Blood Gas Notified TM Whom Blood Gas Notified 06/22/2018 9:08:33 Time AM Consultation Date/Type/Reason Admit Date/Time Jun 21, 2018 at 11:45 Initial Consult Date 06/22/18 Type of Consult cv Requesting Provider: RONALD LAWRENCE 24 HR Interval Summary Free Text/Dictation Patient remains intubated. Troponins are trending down, on IV pressor, otherwise no new cardiac issues in discussion with nursing staff Exam/Review of Systems Vital Signs Vitals Vital Signs Date Temp Pulse Resp B/P (MAP) Pulse Ox O2 O2 Flow FiO2 Time Delivery Rate 06/22/18 69 19 101/80 100 Mechanical 08:15 (87) Ventilator 06/22/18 40 08:00 06/22/18 97.1 08:00 06/21/18 15 10:50 Intake and Output 06/21/18 06/21/18 06/22/18 1515:00 23:00 07:00 IntakeIntake Total 511.06 ml 828.27 ml OutputOutput Total 820 ml 45 ml BalanceBalance -308.94 ml 783.27 ml Exam Intubated and sedated, no apparent distress, nurse at bedside Constitutional: frail Head: normocephalic ENMT: intubated Respiratory: other (Coarse breath sounds bilaterally, no wheezing) Cardiovascular: regular rate and rhythm, other (S1-S2 heard) Gastrointestinal: soft, non-tender, bowel sounds Genitourinary - Female: other (Allan present) Extremities: other (No significant edema) Medications Medications Current Medications Propofol 100 ml @ 1.35 mls/hr ONCE STAT IV Last administered on 06/21/18at 10:30; Admin Dose 0.54 MLS/HR; Start 06/21/18 at 14:31; Stop 06/24/18 at 16:35 Levothyroxine Sodium (Synthroid) 75 mcg BEFORE BREAKFAST PO ; Start 06/22/18 at 07:00 Sodium Chloride 1,000 ml @ 80 mls/hr [id number] IV Last administered on 06/22/18at 05:30; Admin Dose 80 MLS/HR; Start 06/21/18 at 15:00 Pantoprazole (Protonix Iv) 40 mg DAILY@06 IV Last administered on 06/22/18at 06:30; Admin Dose 40 MG; Start 06/22/18 at 06:00 Docusate Sodium (Colace) 100 mg BID PO ; Start 06/21/18 at 21:00 Acetaminophen (Tylenol Liquid) 650 mg Q6H PRN NGT MILD PAIN(1-3)OR ELEVATED TEMP; Start 06/21/18 at 15:00 Enoxaparin Sodium (Lovenox) 45 mg DAILY SC Last administered on 06/22/18at 08:42; Admin Dose 45 MG; Start 06/21/18 at 15:30 Norepinephrine 16 mg/Dextrose 500 ml @ 1.88 mls/hr TITRATE IV Last administered on 06/22/18at 09:30; Admin Dose 28.13 MLS/HR; Start 06/21/18 at 18:00 Aspirin (Aspirin) 81 mg DAILY GTB ; Start 06/21/18 at 18:30; Status Hold Atorvastatin Calcium (Lipitor) 10 mg HS NGT ; Start 06/21/18 at 21:00 Aspirin (Aspirin) 300 mg DAILY IA ; Start 06/22/18 at 10:00 Dread Carney DO Jun 22, 2018 11:28
[2018-06-22] MEDS ORDERED: VASOPRESSIN 60 UNIT in DEXTROSE 5% 57 ML IV SCH (12:00)
--- NOTE | 2018-06-22 13:13 | RADRPT ---
Echocardiogram Report Patient Name: BETHANIE LAU Gender: Female Date: 1935 Study Date: 22-Jun-2018 Market Master: Nik Goncalves RDCS Location: 108 Ref. Physician: RONALD LAWRENCE Quality: Adequate Procedures: Transthoracic echocardiogram with complete 2D, M-Mode, and doppler examination. Indications: NSTEMI. 2D/M Mode Doppler Measurement Value Normal Ranges Measurement Value Normal Ranges LVIDd 2D 2.0 3.5 - 5.6 cm CHERELLE Vmax 2.5 cm2 LVIDs 2D 1.1 2.1 - 4.1 cm AV Peak Lexa 1.4 m/sec LVPWd 2D 1.1 0.6 - 1.1 cm AV Peak PG 8.0 mmHg IVSd 2D 1.2 0.6 - 1.1 cm AI Peak PG 43.0 mmHg AoR Diam 2D 2.9 2.0 - 3.7 cm AI Peak Lexa 3.3 m/sec LA/Ao 2D 1 0 - 1 AI PHT 611.0 msec LA Dimen 2D 2.2 2.3 - 4.0 cm LVOT Peak Lexa 1.2 m/sec LVOT Diam 1.9 cm LVOT Peak PG 6.0 mmHg MV E Peak Lexa 0.4 m/sec MV A Peak Lexa 1.1 m/sec MV E/A 0.4 MV Decel Time 239 msec Lat E` Lexa 0.0 m/sec Lateral E/E` 11.1 Med E` Lexa 0.0 m/sec MV E/A 0.4 TR Peak Lexa 2.3 m/sec TR Peak PG 21.0 mmHg RVSP 24.0 mmHg RA Pressure 3.0 Findings Left Ventricle: Lower limits of normal systolic function. Mild concentric left ventricular hypertrophy. Reduced left ventricular cavity size. Ejection fraction is visually estimated at 50 %. Abnormal Diastolic Function. Right Ventricle: Normal right ventricular size. Normal right ventricular systolic function. Left Atrium: The left atrium is normal in size. Right Atrium: The right atrium is normal in size. Mitral Valve: Moderate mitral leaflet calcification. Moderate mitral annular calcification. Trace mitral regurgitation. Aortic Valve: No hemodynamically significant aortic stenosis by doppler. Aortic cusps appear moderately calcified. Mild aortic valve regurgitation. Tricuspid Valve: Normal appearance of the tricuspid valve. Estimated peak PA systolic pressure 24 mmHg. There is trace tricuspid regurgitation. Pulmonic Valve: Pulmonic valve not well visualized. Pericardium: Normal pericardium with no significant pericardial effusion. Aorta: Normal aortic root. IVC: Normal size and normal respiratory collapse consistent with normal right atrial pressure. Conclusions Lower limits of normal systolic function. Mild concentric left ventricular hypertrophy. Reduced left ventricular cavity size. Ejection fraction is visually estimated at 50 %. Abnormal Diastolic Function. Normal right ventricular size. Normal right ventricular systolic function. The left atrium is normal in size. The right atrium is normal in size. No hemodynamically significant aortic stenosis by doppler. Aortic cusps appear moderately calcified. Mild aortic valve regurgitation. Normal appearance of the tricuspid valve. Estimated peak PA systolic pressure 24 mmHg. There is trace tricuspid regurgitation. Moderate mitral leaflet calcification. Moderate mitral annular calcification. Trace mitral regurgitation. Normal pericardium with no significant pericardial effusion. Electronically Signed By: Dread Carney 22-Jun-2018 13:13:15 -0800 Patient Name: BETHANIE LAU Study Date: 22-Jun-2018 [id number]
--- NOTE | 2018-06-22 13:22 | PN ---
Date/Time of Note Date/Time of Note DATE: 06/22/18 TIME: 13:02 Assessment/Plan VTE Prophylaxis Risk score (from Ns)>0 risk: 7 SCD applied (from Ns): Yes Pharmacological prophylaxis: heparin Lines/Catheters IV Catheter Type (from Nrsg): Central Line Central line still needed: Yes Urinary Cath still in place: Yes Reason Cath still needed: urinary retention Assessment/Plan Hospital Course 83 yo female with dementia who presents with septic shock and multiorgan failure PULM: Acute respiratory failure - Wean MV as tolerated CV: NSTEMI and hypotension/shock - NSTEMI is type II - Continue levophed and vasopressin to MAP 65 ID: Septic shock of unclear source - Continue broad spectrum abx - Monitor cultures RENAL: Lactic acidosis, JUAN DAVID on CKD: - Monitor renal output NEUROP - dementia stable DNR. Patient's family wants to see how she does over the weekend on life support. Aware of critical state and poor prognosis. If no improvement over weekend likely palliative extubation in coming 2-3 days Result Diagram: 06/22/18 0520 06/22/18 0500 Results 24hrs Laboratory Tests Test 06/21/18 14:36 06/21/18 17:53 06/21/18 19:32 06/21/18 19:33 POC Venous Lactate 2.5 *H Lactic Acid Level 8.2 *H Creatine Kinase 208 H Creatine Kinase 10.5 Index Creatinine Kinase 21.80 H MB (Mass) Troponin I 1.150 *H Sodium Level 144 Potassium Level 4.5 Chloride Level 112 H Carbon Dioxide 16 L Level Anion Gap 16 H Blood Urea 51 H Nitrogen Creatinine 1.87 H Est Glomerular Filtrat Rate mL/min Glucose Level 146 Calcium Level 9.2 Magnesium Level 2.2 Test 06/21/18 22:17 06/22/18 04:49 06/22/18 05:00 06/22/18 05:20 Lactic Acid Level 5.6 *H 2.8 *H Hemoglobin A1c 5.2 Sodium Level 143 Potassium Level 3.7 Chloride Level 115 H Carbon Dioxide 16 L Level Anion Gap 12 Blood Urea 51 H Nitrogen Creatinine 1.76 H Est Glomerular Filtrat Rate mL/min Glucose Level 187 Calcium Level 8.3 L Total Bilirubin 0.2 Direct Bilirubin 0.00 Indirect Bilirubin 0.2 Aspartate Amino 45 Transf (AST/SGOT) Alanine 18 Aminotransferase ( ALT/SGPT) Alkaline 86 # Phosphatase Total Protein 5.9 #L Albumin 2.8 L Globulin 3.10 Albumin/Globulin 0.90 Ratio Triglycerides 300 H Level Cholesterol Level 252 H LDL Cholesterol, 151 Calculated HDL Cholesterol 41 Cholesterol/HDL 6.1 Ratio Thyroid 0.221 L Stimulating Hormone (TSH) White Blood Count 15.6 #H Red Blood Count 4.85 # Hemoglobin 14.4 # Hematocrit 45.6 # Mean Corpuscular 94.0 Volume Mean Corpuscular 29.7 Hemoglobin Mean Corpuscular 31.6 L Hemoglobin Concent Red Cell 15.3 H Distribution Width Platelet Count 210 Mean Platelet 10.1 Volume Immature 0.600 H Granulocytes % Neutrophils % 88.8 H Lymphocytes % 6.5 L Monocytes % 4.0 Eosinophils % 0.0 Basophils % 0.1 Nucleated Red 0.0 Blood Cells % Immature 0.100 H Granulocytes # Neutrophils # 13.9 H Lymphocytes # 1.0 Monocytes # 0.6 Eosinophils # 0.0 Basophils # 0.0 Nucleated Red 0.0 Blood Cells # Test 06/22/18 09:00 Blood Gas Specimen Blood arterial Source Arterial Blood 06/22/2018 8:56:38 Date Drawn AM Arterial Blood pH 7.407 (Temp corrected) Arterial Blood 21.0 L pCO2 (Temp correct) Arterial Blood pO2 160.9 H (Temp corrected) Arterial Blood 12.9 L HCO3 Arterial Blood -9.1 L Base Excess Arterial Blood 99.0 Oxygen Saturation Russel Test ACCEPTAB Arterial Blood Gas Right Radial Puncture Site Arterial 0.2 Blood Carboxyhemog lobin Arterial Blood 0.4 Methemoglobin Blood Gas A-a O2 100.2 H Differential Oxyhemoglobin 98.4 Percent Blood Gas 37.0 Temperature Blood Gas 18.0 Respiration Rate Blood Gas Actual 18 Respiration Rate Blood Gas Modality VENT - AC FiO2 40.0 Blood Gas Tidal 400.0 Volume Blood Gas Notified TM Whom Blood Gas Notified 06/22/2018 9:08:33 Time AM Subjective 24 Hr Interval Summary Free Text/Dictation Discussed grave state of illness with family and poor prognosis They agree to DNR Discussed withdrawal of care at this time but they prefer to give aggressive life support for two days and see if improvement Exam/Review of Systems Vital Signs Vitals Vital Signs Date Temp Pulse Resp B/P (MAP) Pulse Ox O2 O2 Flow FiO2 Time Delivery Rate 06/22/18 67 18 100 40 11:30 06/22/18 68/54 (59) Mechanical 11:15 Ventilator 06/22/18 97.1 08:00 06/21/18 15 10:50 Intake and Output 06/21/18 06/21/18 06/22/18 1515:00 23:00 07:00 IntakeIntake Total 511.06 ml 862.31 ml OutputOutput Total 820 ml 45 ml BalanceBalance -308.94 ml 817.31 ml Exam Intubated, sedated Cachectic appearance Clear lungs anteriorly RRR No edema Medications Medications Current Medications Propofol 100 ml @ 1.35 mls/hr ONCE STAT IV Last administered on 06/21/18at 10:30; Admin Dose 0.54 MLS/HR; Start 06/21/18 at 14:31; Stop 06/24/18 at 16:35 Levothyroxine Sodium (Synthroid) 75 mcg BEFORE BREAKFAST PO ; Start 06/22/18 at 07:00 Sodium Chloride 1,000 ml @ 80 mls/hr [id number] IV Last administered on 06/22/18at 05:30; Admin Dose 80 MLS/HR; Start 06/21/18 at 15:00 Pantoprazole (Protonix Iv) 40 mg DAILY@06 IV Last administered on 06/22/18at 06:30; Admin Dose 40 MG; Start 06/22/18 at 06:00 Docusate Sodium (Colace) 100 mg BID PO ; Start 06/21/18 at 21:00 Acetaminophen (Tylenol Liquid) 650 mg Q6H PRN NGT MILD PAIN(1-3)OR ELEVATED TEMP; Start 06/21/18 at 15:00 Enoxaparin Sodium (Lovenox) 45 mg DAILY SC Last administered on 06/22/18at 08:42; Admin Dose 45 MG; Start 06/21/18 at 15:30 Norepinephrine 16 mg/Dextrose 500 ml @ 1.88 mls/hr TITRATE IV Last administered on 06/22/18at 09:30; Admin Dose 28.13 MLS/HR; Start 06/21/18 at 18:00 Aspirin (Aspirin) 81 mg DAILY GTB ; Start 06/21/18 at 18:30; Status Hold Atorvastatin Calcium (Lipitor) 10 mg HS NGT ; Start 06/21/18 at 21:00 Aspirin (Aspirin) 300 mg DAILY MD ; Start 06/22/18 at 10:00 Vasopressin 60 unit/Dextrose 60 ml @ 1.2 mls/hr Q12H IV Last administered on 06/22/18at 12:15; Admin Dose 1.2 MLS/HR; Start 06/22/18 at 12:00 MIGUEL ÁNGEL PIKE MD Jun 22, 2018 13:21
[2018-06-22] MEDS ORDERED: SOD CHLORIDE 0.9% 1,000 ML IV ONE (13:30)
[2018-06-22] MEDS ORDERED: morphine (DRIP) 100 MG/100 ML 100 ML IV SCH (14:15)
--- NOTE | 2018-06-22 17:15 | CONS ---
Date/Time of Note Date/Time of Note DATE: 06/22/18 TIME: 17:14 Assessment/Plan Assessment/Plan Assessment/Plan 1. Acute kidney injury due to ATN from sepsis 2. Hypokalemia 3. Hypernatremia 4. acute hypoxemic respiratory failure - intubated on ventilator 5.H/o Hypothyroidism 6. sepsis 7. acute NSTEMI 8. acute metabolic encephalopathy Plan: BUN/Cr 51/1.76, BP stable, K normal Continue IV abx, Renally dose all abx and monitor electrolytes U/O 865 in last 24 hr, will monitor Urine outptu today to decide for lasix tomorrow Monitor electrolyes and replace agressively will follow up Result Diagram: 06/22/18 0520 06/22/18 0500 Results 24hrs Laboratory Tests Test 06/21/18 17:53 06/21/18 19:32 06/21/18 19:33 06/21/18 22:17 Lactic Acid Level 8.2 *H 5.6 *H Creatine Kinase 208 H Creatine Kinase 10.5 Index Creatinine Kinase 21.80 H MB (Mass) Troponin I 1.150 *H Sodium Level 144 Potassium Level 4.5 Chloride Level 112 H Carbon Dioxide 16 L Level Anion Gap 16 H Blood Urea 51 H Nitrogen Creatinine 1.87 H Est Glomerular Filtrat Rate mL/min Glucose Level 146 Calcium Level 9.2 Magnesium Level 2.2 Test 06/22/18 04:49 06/22/18 05:00 06/22/18 05:20 06/22/18 09:00 Hemoglobin A1c 5.2 Sodium Level 143 Potassium Level 3.7 Chloride Level 115 H Carbon Dioxide 16 L Level Anion Gap 12 Blood Urea 51 H Nitrogen Creatinine 1.76 H Est Glomerular Filtrat Rate mL/min Glucose Level 187 Lactic Acid Level 2.8 *H Calcium Level 8.3 L Total Bilirubin 0.2 Direct Bilirubin 0.00 Indirect Bilirubin 0.2 Aspartate Amino 45 Transf (AST/SGOT) Alanine 18 Aminotransferase ( ALT/SGPT) Alkaline 86 # Phosphatase Total Protein 5.9 #L Albumin 2.8 L Globulin 3.10 Albumin/Globulin 0.90 Ratio Triglycerides 300 H Level Cholesterol Level 252 H LDL Cholesterol, 151 Calculated HDL Cholesterol 41 Cholesterol/HDL 6.1 Ratio Thyroid 0.221 L Stimulating Hormone (TSH) White Blood Count 15.6 #H Red Blood Count 4.85 # Hemoglobin 14.4 # Hematocrit 45.6 # Mean Corpuscular 94.0 Volume Mean Corpuscular 29.7 Hemoglobin Mean Corpuscular 31.6 L Hemoglobin Concent Red Cell 15.3 H Distribution Width Platelet Count 210 Mean Platelet 10.1 Volume Immature 0.600 H Granulocytes % Neutrophils % 88.8 H Lymphocytes % 6.5 L Monocytes % 4.0 Eosinophils % 0.0 Basophils % 0.1 Nucleated Red 0.0 Blood Cells % Immature 0.100 H Granulocytes # Neutrophils # 13.9 H Lymphocytes # 1.0 Monocytes # 0.6 Eosinophils # 0.0 Basophils # 0.0 Nucleated Red 0.0 Blood Cells # Blood Gas Specimen Blood arterial Source Arterial Blood 06/22/2018 8:56:38 Date Drawn AM Arterial Blood pH 7.407 (Temp corrected) Arterial Blood 21.0 L pCO2 (Temp correct) Arterial Blood pO2 160.9 H (Temp corrected) Arterial Blood 12.9 L HCO3 Arterial Blood -9.1 L Base Excess Arterial Blood 99.0 Oxygen Saturation Russel Test ACCEPTAB Arterial Blood Gas Right Radial Puncture Site Arterial 0.2 Blood Carboxyhemog lobin Arterial Blood 0.4 Methemoglobin Blood Gas A-a O2 100.2 H Differential Oxyhemoglobin 98.4 Percent Blood Gas 37.0 Temperature Blood Gas 18.0 Respiration Rate Blood Gas Actual 18 Respiration Rate Blood Gas Modality VENT - AC FiO2 40.0 Blood Gas Tidal 400.0 Volume Blood Gas Notified TM Whom Blood Gas Notified 06/22/2018 9:08:33 Time AM Consultation Date/Type/Reason Admit Date/Time Jun 21, 2018 at 11:45 Initial Consult Date 06/22/18 Type of Consult NEPHROLOGY Requesting Provider: RONALD LAWRENCE Exam/Review of Systems Vital Signs Vitals Vital Signs Date Temp Pulse Resp B/P (MAP) Pulse Ox O2 O2 Flow FiO2 Time Delivery Rate 06/22/18 74 21 73/52 (59) Nasal 3.0 16:00 Cannula 06/22/18 100 40 15:00 06/22/18 97.0 12:00 Intake and Output 06/21/18 06/21/18 06/22/18 1515:00 23:00 07:00 IntakeIntake Total 511.06 ml 942.31 ml OutputOutput Total 820 ml 45 ml BalanceBalance -308.94 ml 897.31 ml Exam Constitutional: non-verbal, other (due to intubation ) Eyes: other (ET tube in place, NG tube in place ) ENMT: nl external ears & nose Neck: supple, non-tender Respiratory: congested cough, crackles/rales, diminished breath sounds Cardiovascular: regular rate and rhythm, nl pulses Gastrointestinal: soft, non-tender Musculoskeletal: muscle weakness, swelling Neurological: other (Intubated, sedated ) Medications Medications Current Medications Morphine Sulfate/ Sodium Chloride 100 ml @ 1 mls/hr TITRATE IV Last administered on 06/22/18at 15:05; Admin Dose 1 MLS/HR; Start 06/22/18 at 14:15 RIA SHULTZ MD Jun 22, 2018 17:14
--- NOTE | 2018-06-22 17:33 | CONS ---
Date/Time of Note Date/Time of Note DATE: 06/22/18 TIME: 17:32 Assessment/Plan Assessment/Plan Assessment/Plan I spoke to family members at the bedside and assured them that patient will be kept comfortable throughout the night she is currently on comfort care and protocol benzodiazepines and opioids. Only members are in agreement with treatment and the decision to have extubated patient earlier today. We will con tinue to support patient expect her to succumb to her illness within the next 24 hours. Result Diagram: 06/22/18 0520 06/22/18 0500 Results 24hrs Laboratory Tests Test 06/21/18 17:53 06/21/18 19:32 06/21/18 19:33 06/21/18 22:17 Lactic Acid Level 8.2 *H 5.6 *H Creatine Kinase 208 H Creatine Kinase 10.5 Index Creatinine Kinase 21.80 H MB (Mass) Troponin I 1.150 *H Sodium Level 144 Potassium Level 4.5 Chloride Level 112 H Carbon Dioxide 16 L Level Anion Gap 16 H Blood Urea 51 H Nitrogen Creatinine 1.87 H Est Glomerular Filtrat Rate mL/min Glucose Level 146 Calcium Level 9.2 Magnesium Level 2.2 Test 06/22/18 04:49 06/22/18 05:00 06/22/18 05:20 06/22/18 09:00 Hemoglobin A1c 5.2 Sodium Level 143 Potassium Level 3.7 Chloride Level 115 H Carbon Dioxide 16 L Level Anion Gap 12 Blood Urea 51 H Nitrogen Creatinine 1.76 H Est Glomerular Filtrat Rate mL/min Glucose Level 187 Lactic Acid Level 2.8 *H Calcium Level 8.3 L Total Bilirubin 0.2 Direct Bilirubin 0.00 Indirect Bilirubin 0.2 Aspartate Amino 45 Transf (AST/SGOT) Alanine 18 Aminotransferase ( ALT/SGPT) Alkaline 86 # Phosphatase Total Protein 5.9 #L Albumin 2.8 L Globulin 3.10 Albumin/Globulin 0.90 Ratio Triglycerides 300 H Level Cholesterol Level 252 H LDL Cholesterol, 151 Calculated HDL Cholesterol 41 Cholesterol/HDL 6.1 Ratio Thyroid 0.221 L Stimulating Hormone (TSH) White Blood Count 15.6 #H Red Blood Count 4.85 # Hemoglobin 14.4 # Hematocrit 45.6 # Mean Corpuscular 94.0 Volume Mean Corpuscular 29.7 Hemoglobin Mean Corpuscular 31.6 L Hemoglobin Concent Red Cell 15.3 H Distribution Width Platelet Count 210 Mean Platelet 10.1 Volume Immature 0.600 H Granulocytes % Neutrophils % 88.8 H Lymphocytes % 6.5 L Monocytes % 4.0 Eosinophils % 0.0 Basophils % 0.1 Nucleated Red 0.0 Blood Cells % Immature 0.100 H Granulocytes # Neutrophils # 13.9 H Lymphocytes # 1.0 Monocytes # 0.6 Eosinophils # 0.0 Basophils # 0.0 Nucleated Red 0.0 Blood Cells # Blood Gas Specimen Blood arterial Source Arterial Blood 06/22/2018 8:56:38 Date Drawn AM Arterial Blood pH 7.407 (Temp corrected) Arterial Blood 21.0 L pCO2 (Temp correct) Arterial Blood pO2 160.9 H (Temp corrected) Arterial Blood 12.9 L HCO3 Arterial Blood -9.1 L Base Excess Arterial Blood 99.0 Oxygen Saturation Russel Test ACCEPTAB Arterial Blood Gas Right Radial Puncture Site Arterial 0.2 Blood Carboxyhemog lobin Arterial Blood 0.4 Methemoglobin Blood Gas A-a O2 100.2 H Differential Oxyhemoglobin 98.4 Percent Blood Gas 37.0 Temperature Blood Gas 18.0 Respiration Rate Blood Gas Actual 18 Respiration Rate Blood Gas Modality VENT - AC FiO2 40.0 Blood Gas Tidal 400.0 Volume Blood Gas Notified TM Whom Blood Gas Notified 06/22/2018 9:08:33 Time AM Consultation Date/Type/Reason Admit Date/Time Jun 21, 2018 at 11:45 Hx of Present Illness Patient is an 83-year-old female who was admitted to the intensive care unit in septic shock. Family members are at the bedside at this time. She has been seen by pulmonary medicine and cardiology was intubated when she came into the intensive care unit diagnosed with non-STEMI been treated very aggressively with IV antibiotic coverage pressors close correction to her laboratory tests. But throughout the day patient has deteriorated become more somnolent blood gases have deteriorated and patient is close to at this time family members at the bedside she has been extubated and begun on low-dose of morphine. This is per protocol. To admission patient mental status was waxing and waning unable to follow commands stopped eating. Once again patient is on comfort measures at this time. Past Medical History Medical History: high cholesterol, hypertension, hypothyroid Medications Current Medications Morphine Sulfate/ Sodium Chloride 100 ml @ 1 mls/hr TITRATE IV Last administered on 06/22/18at 15:05; Admin Dose 1 MLS/HR; Start 06/22/18 at 14:15 Allergies: Coded Allergies: No Known Allergy (Unverified , 06/21/18) Past Surgical History Past Surgical Hx: other (not available ) Social History Alcohol Use: none Smoking Status: Never smoker Drug Use: none Exam/Review of Systems Vital Signs Vitals Vital Signs Date Temp Pulse Resp B/P (MAP) Pulse Ox O2 O2 Flow FiO2 Time Delivery Rate 06/22/18 74 21 73/52 (59) Nasal 3.0 16:00 Cannula 06/22/18 100 40 15:00 06/22/18 97.0 12:00 Intake and Output 06/21/18 06/21/18 06/22/18 1414:59 22:59 06:59 IntakeIntake Total 467.65 ml 871.68 ml OutputOutput Total 760 ml 105 ml BalanceBalance -292.35 ml 766.68 ml Exam Constitutional: non-verbal, frail Eyes: nl conjunctiva, EOMI, nl lids, nl sclera, PERRL Respiratory: diminished breath sounds, intercostal retraction, labored breathing Cardiovascular: regular rate and rhythm, nl pulses Neurological: unresponsive, other Medications Medications Current Medications Morphine Sulfate/ Sodium Chloride 100 ml @ 1 mls/hr TITRATE IV Last administered on 06/22/18at 15:05; Admin Dose 1 MLS/HR; Start 06/22/18 at 14:15 RAUL GUARDADO Jun 22, 2018 17:33
[2018-06-23] MEDS ORDERED: ENOXAPARIN 30 MG/0.3 ML SYG SC SCH (09:00)
--- NOTE | 2018-06-25 08:14 | DES ---
Date/Time of Note Date/Time of Note DATE: 06/25/18 TIME: 08:12 Discharge/ Summary Admission/Discharge Info Admit Date/Time Jun 21, 2018 at 11:45 Final Diagnosis Multiorgan failure Preliminary Cause of Septic shock, multiorgan failure Hospital Course Patient presented wtih respiratory failure and multiorgan failure from septic shock. She was emergently intubated. Vasopressors and broad spectrum antibiotics were initiated. Grave prognosis was discussed with the family who then elected for comfort care measures and palliative extubation. The patient was then extubated and comfort medications were started. She shortly thereafter and was pronounced by ICU staff. MIGUEL ÁNGEL PIKE MD Jun 25, 2018 08:14
== END 2018-06-22 23:48 | disposition expired | DRG 871 ==
LOC: E/R 09:51 → ICU 11:45
PROVIDERS: ADMIT Family Medicine; ATTEND Family Medicine
PROC: 0BH17EZ Insertion of Endotracheal Airway into Trachea, Via Natural or Artificial Opening (ICD-10-PCS; principal; 2018-06-21)
PROC: 5A1935Z Respiratory Ventilation, Less than 24 Consecutive Hours (ICD-10-PCS; 2018-06-21)
DX: A41.9 Sepsis, unspecified organism (principal); I21.4 Non-ST elevation (NSTEMI) myocardial infarction; R65.21 Severe sepsis with septic shock; J96.00 Acute respiratory failure, unspecified whether with hypoxia or hypercapnia; N17.0 Acute kidney failure with tubular necrosis; G93.41 Metabolic encephalopathy; E87.2 Acidosis; E87.0 Hyperosmolality and hypernatremia; E03.9 Hypothyroidism, unspecified; N18.9 Chronic kidney disease, unspecified; E83.51 Hypocalcemia; Z66 Do not resuscitate
CPT/HCPCS: 36600; 70450; 71045; 80048; 80053; 80061; 80307; 81001; 82140; 82550; 82553; 82803; 83036; 83605; 83735; 84436; 84443; 84479; 84484; 85025; 85610; 87040; 87081; 87086; 87400; 93005; 93306; 94002; 94003; 94770; 96374; C9113; J0610; J0692; J2270; J3370; J3480; J7030; J7060